=== PATIENT | female | born 1965 | race Caucasian/White ===

== ENCOUNTER 2016-09-29 21:35 | Emergency (ER) | payer OTHER ==
--- NOTE | ~2016-09-29 | CR253 ---
[facility]. [place] A Service of [facility] & [facility] RADIOLOGY TEXT RESULTS PATIENT: DOROTHY REYNAGA LOCATION: SED : 69 UNIT #: [id number] AGE: [address]: Rajinder Jaquez SEX: F ORDER DR: [id number] [place] [id number] E MR#: [id number] Acc #: [id number] NAME: DOROTHY REYNAGA : 1965 SEX: F STUDY DATE/TIME: 09/29/2016 22:10 UNIT: SED ROOM: STUDY DESCRIPTION: CR Tibia and Fibula 2 Views Rt Attending Physician: Rajinder Jaquez P.A.-C. Ordering Physician: Rajinder Jaquez P.A.-C. Primary Care Physician: Michelle Angulo MEDICAL IMAGING REPORT This report is preliminary unless electronic signature is present. EXAM Right lower leg HISTORY Pain right lower leg since last night. [place] a pop when getting out of bed. FINDINGS There is no evidence of fracture, dislocation, or radiopaque foreign body. IMPRESSION Normal right tibia and fibula. Dictated by... Kizzy Campbell M.D. THIS IS AN ELECTRONICALLY VERIFIED REPORT Kizzy Campbell M.D. at 09/30/2016 2:10 PM Arlene TD: 09/30/2016 11:22 JOB #: [id number] MEDICAL IMAGING REPORT
[~2016-09-29 21:35] MED LIST: CHOLESTEROL MED; NORVASC PO; SYNTHROID PO
== END 2016-09-29 23:04 | disposition home or self-care (01) ==
LOC: SED 21:35
DX: S89.91XA Unspecified injury of right lower leg, initial encounter (principal); F17.210 Nicotine dependence, cigarettes, uncomplicated; X50.1XXA Overexertion from prolonged static or awkward postures, initial encounter; Y92.009 Unspecified place in unspecified non-institutional (private) residence as the place of occurrence of the external cause
CPT/HCPCS: 29515; 73590; 99283

== ENCOUNTER 2016-11-03 08:09 | Emergency (ER) | payer OTHER ==
--- NOTE | ~2016-11-03 | CR133 ---
[facility] A Service of [facility] & [facility] RADIOLOGY TEXT RESULTS PATIENT: DOROTHY REYNAGA LOCATION: [facility] : [birth year] UNIT #: [id number] AGE: [address]: BEULAH YOUNG SEX: F ORDER DR: [id number] [facility] [address] [place], [place] [address] [id number] E MR#: [id number] Acc #: [id number] NAME: DOROTHY REYNAGA : 1965 SEX: F STUDY DATE/TIME: 11/03/2016 7:49 UNIT: [facility] ROOM: STUDY DESCRIPTION: CR Forearm 2 View Rt Attending Physician: Beulah Young Aprn Ordering Physician: Beulah Young Aprn Primary Care Physician: Michelle Angulo MEDICAL IMAGING REPORT This report is preliminary unless electronic signature is present EXAM Right forearm 2 views, 11/03/2016 CLINICAL HISTORY Right arm pain for 1 month, heard a pop. FINDINGS AP and lateral views of the forearm show no evidence of fracture or destructive bone lesion. No periosteal elevation is seen. No radiodense foreign bodies are noted. Adjacent soft tissue structures are normal. IMPRESSION Normal forearm. Dictated by... Alejo Carbajal M.D. THIS IS AN ELECTRONICALLY VERIFIED REPORT Alejo Carbajal M.D. at 11/03/2016 3:51 PM AMOS/marnie TD: 11/03/2016 09:41 JOB #: [id number] MEDICAL IMAGING REPORT Page 1 of 1 COPY
--- NOTE | ~2016-11-03 | CR142 ---
[facility] A Service of [facility] & [facility] RADIOLOGY TEXT RESULTS PATIENT: DOROTHY REYNAGA LOCATION: [facility] : [birth year] UNIT #: [id number] AGE: [address]: BEULAH YOUNG SEX: F ORDER DR: [id number] [facility] [address] [place], [place] [address] [id number] E MR#: [id number] Acc #: [id number] NAME: DOROTHY REYNAGA : 1965 SEX: F STUDY DATE/TIME: 11/03/2016 7:51 UNIT: [facility] ROOM: STUDY DESCRIPTION: CR Hand Min 3 Views Rt Attending Physician: Beulah Young Aprn Ordering Physician: Beulah Young Aprn Primary Care Physician: Michelle Angulo MEDICAL IMAGING REPORT This report is preliminary unless electronic signature is present EXAM Right hand, 3 views. HISTORY Right hand pain for 1 month, heard a pop. FINDINGS Normal. Dictated by... Alejo Carbajal M.D. THIS IS AN ELECTRONICALLY VERIFIED REPORT Alejo Carbajal M.D. at 11/03/2016 3:51 PM AMOS/carlos TD: 11/03/2016 09:46 JOB #: [id number] MEDICAL IMAGING REPORT Page 1 of 1 COPY
== END 2016-11-03 09:36 | disposition home or self-care (01) ==
LOC: CED 08:09
DX: S66.901A Unspecified injury of unspecified muscle, fascia and tendon at wrist and hand level, right hand, initial encounter (principal); S56.901A Unspecified injury of unspecified muscles, fascia and tendons at forearm level, right arm, initial encounter; I10 Essential (primary) hypertension; J44.9 Chronic obstructive pulmonary disease, unspecified; F17.210 Nicotine dependence, cigarettes, uncomplicated; Z79.899 Other long term (current) drug therapy; X58.XXXA Exposure to other specified factors, initial encounter; Y92.89 Other specified places as the place of occurrence of the external cause
CPT/HCPCS: 29125; 73090; 73130; 99284